=== PATIENT | male | born 1965 | race Two or more races ===

== ENCOUNTER 2018-11-19 09:30 | Emergency (ER) | payer OTHER ==
[2018-11-19 10:26] LABS: ADD MAN DIFF? NO
[2018-11-19 10:27] LABS: BASOPHILS % 0.9 % (0.0-2.0); EOSINOPHILS # 0.1 10^3/ul (0.0-0.5); EOSINOPHILS % 1.7 % (0.0-7.0); HEMATOCRIT 43.1 % (42.0-52.0); HEMOGLOBIN 15.2 g/dl (14.0-18.0); LYMPHOCYTES # 1.3 10^3/ul (0.8-2.9); LYMPHOCYTES % 36.4 % (15.0-51.0); MEAN CORPUSCULAR HEMOGLOBIN 33.6 pg (29.0-33.0); MEAN CORPUSCULAR HGB CONC 35.3 g/dl (32.0-37.0); MEAN CORPUSCULAR VOLUME 95.4 fl (82.0-101.0); MEAN PLATELET VOLUME 9.6 fl (7.4-10.4); MONOCYTE # 0.5 10^3/ul (0.3-0.9); MONOCYTES % 13.1 % (0.0-11.0); NEUTROPHIL # 1.6 10^3/ul (1.6-7.5); NEUTROPHILS % 47.9 % (39.0-77.0); PLATELET COUNT 156 10^3/UL (140-415); RED BLOOD COUNT 4.52 10^6/ul (4.70-6.10); RED CELL DISTRIBUTION WIDTH 13.2 % (11.5-14.5)
[2018-11-19 10:27] LABS: WHITE BLOOD COUNT 3.4 10^3/ul (4.8-10.8)
[2018-11-19 10:45] LABS: ALANINE AMINOTRANSFERASE 96 IU/L (13-69); ALBUMIN 4.3 g/dl (3.3-4.9); ALBUMIN/GLOBULIN RATIO 1.07; ALKALINE PHOSPHATASE 97 IU/L (42-121); ANION GAP 10 (5-13); ASPARTATE AMINO TRANSFERASE 64 IU/L (15-46); BILIRUBIN,INDIRECT 0.9 mg/dl (0-1.1); BILIRUBIN,TOTAL 0.9 mg/dl (0.2-1.3); BLOOD UREA NITROGEN 9 mg/dl (7-20); CALCIUM 9.3 mg/dl (8.4-10.2); CARBON DIOXIDE 29 mmol/L (21-31); CHLORIDE 104 mmol/L (97-110); CREATININE 0.77 mg/dl (0.61-1.24); Estimated GFR > 60 mL/min (>60); GLUCOSE 118 mg/dl (70-220); POTASSIUM 4.2 mmol/L (3.5-5.1); SODIUM 143 mmol/L (135-144); TOTAL PROTEIN 8.3 g/dl (6.1-8.1)
[2018-11-19 10:50] LABS: INR 0.96; PROTIME 12.9 Sec (11.9-14.9)
[2018-11-19 10:51] LABS: PARTIAL THROMBOPLASTIN TIME 28.6 Sec (23.0-35.0)
== END 2018-11-19 11:45 | disposition home or self-care (01) ==
LOC: E/R 09:30
DX: K62.5 Hemorrhage of anus and rectum (principal); F17.210 Nicotine dependence, cigarettes, uncomplicated; R10.13 Epigastric pain
CPT/HCPCS: 36415; 74176; 80053; 85025; 85610; 85730; 86850; 86900; 86901; 99285-25

== ENCOUNTER 2019-06-04 09:57 | Inpatient (IN) | payer OTHER ==
[2019-06-04] MEDS: ONDANSETRON 4 MG INJ IV ×2 (10:15→12:33)
[2019-06-04 10:16] LABS: ADD MAN DIFF? NO
[2019-06-04] MEDS: HYDROmorphONE 1 MG/ML SYG IV ×2 (10:16→12:33)
[2019-06-04] MEDS: SOD CHLORIDE 0.9% 1,000 ML IV ×2 (10:17→12:32)
[2019-06-04 10:20] LABS: WHITE BLOOD COUNT 4.3 10^3/ul (4.8-10.8)
[2019-06-04 10:20] LABS: BASOPHILS % 0.5 % (0.0-2.0); EOSINOPHILS # 0.1 10^3/ul (0.0-0.5); EOSINOPHILS % 2.8 % (0.0-7.0); HEMATOCRIT 42.7 % (42.0-52.0); LYMPHOCYTES # 1.8 10^3/ul (0.8-2.9); LYMPHOCYTES % 42.1 % (15.0-51.0); MEAN CORPUSCULAR HEMOGLOBIN 33.9 pg (29.0-33.0); MEAN CORPUSCULAR HGB CONC 35.1 g/dl (32.0-37.0); MEAN CORPUSCULAR VOLUME 96.6 fl (82.0-101.0); MEAN PLATELET VOLUME 10.3 fl (7.4-10.4); MONOCYTE # 0.5 10^3/ul (0.3-0.9); MONOCYTES % 12.6 % (0.0-11.0); NEUTROPHIL # 1.8 10^3/ul (1.6-7.5); NEUTROPHILS % 41.8 % (39.0-77.0); PLATELET COUNT 139 10^3/UL (140-415); RED BLOOD COUNT 4.42 10^6/ul (4.70-6.10); RED CELL DISTRIBUTION WIDTH 13.8 % (11.5-14.5)
[2019-06-04 10:39] LABS: ALANINE AMINOTRANSFERASE 70 IU/L (13-69); ALBUMIN 4.4 g/dl (3.3-4.9); ALBUMIN/GLOBULIN RATIO 0.97; ALKALINE PHOSPHATASE 92 IU/L (42-121); AMYLASE 102 U/L (11-123); ANION GAP 10 (5-13); ASPARTATE AMINO TRANSFERASE 69 IU/L (15-46); BILIRUBIN,INDIRECT 1.6 mg/dl (0-1.1); BILIRUBIN,TOTAL 1.6 mg/dl (0.2-1.3); BLOOD UREA NITROGEN 6 mg/dl (7-20); CALCIUM 9.2 mg/dl (8.4-10.2); CARBON DIOXIDE 24 mmol/L (21-31); CHLORIDE 109 mmol/L (97-110); CREATININE 0.87 mg/dl (0.61-1.24); Estimated GFR > 60 mL/min (>60); GLUCOSE 88 mg/dl (70-220); LIPASE 140 U/L (23-300); POTASSIUM 4.1 mmol/L (3.5-5.1); SODIUM 143 mmol/L (135-144); TOTAL PROTEIN 8.9 g/dl (6.1-8.1)
[2019-06-04 10:40] LABS: INR 1.01; PARTIAL THROMBOPLASTIN TIME 24.1 Sec (23.0-35.0); PROTIME 13.4 Sec (11.9-14.9)
[2019-06-04 10:51] LABS: TROPONIN-I < 0.012 ng/ml (0.000-0.120)
[2019-06-04 12:05] LABS: ADD UMIC YES; UR ASCORBIC ACID NEGATIVE (NEGATIVE); UR BACTERIA FEW /HPF (NONE SEEN); UR BILIRUBIN (Dip) NEGATIVE (NEGATIVE); UR BLOOD (Dip) 3+ mg/dL (NEGATIVE); UR CLARITY CLEAR (CLEAR); UR COLOR YELLOW (YELLOW); UR GLUCOSE (Dip) NEGATIVE (NEGATIVE); UR KETONES (Dip) NEGATIVE (NEGATIVE); UR LEUKOCYTE ESTERASE (Dip) NEGATIVE Leu/ul (NEGATIVE); UR MUCUS FEW /HPF (NONE SEEN); UR NITRITE (Dip) NEGATIVE (NEGATIVE); UR RBC > 182 /HPF (0-5); UR SPECIFIC GRAVITY (Dip) 1.006 (1.003-1.030); UR TOTAL PROTEIN (Dip) NEGATIVE (NEGATIVE); UR UROBILINOGEN (Dip) NEGATIVE (NEGATIVE); UR WBC 12 /HPF (0-5)
[2019-06-04] MEDS ORDERED: ONDANSETRON 4 MG INJ IV ×2 (12:30→14:30)
[2019-06-04] MEDS ORDERED: ACETAMINOPHEN 325 MG TAB PO ×2 (12:30→14:30)
[2019-06-04] MEDS: KETOROLAC 30 MG INJ IV (12:33)
[2019-06-04] MEDS: TAMSULOSIN (SR) 0.4 MG CAP PO ×2 (12:34→20:54)
[2019-06-04] MEDS: CIPROFLOXACIN 400MG/D5W 200 ML IVPB (12:44)
[2019-06-04] MEDS ORDERED: NACL 0.9% 3 ML SYG IV (14:30)
[2019-06-04] MEDS: HYDROCODONE/APAP (5/325) TAB PO (15:56)
[2019-06-04] MEDS: morphine 2 MG INJ IV ×2 (19:14→23:40)
[2019-06-05 04:58] LABS: ADD MAN DIFF? NO
[2019-06-05 05:21] LABS: BASOPHILS % 0.6 % (0.0-2.0); EOSINOPHILS # 0.2 10^3/ul (0.0-0.5); HEMATOCRIT 38.7 % (42.0-52.0); HEMOGLOBIN 13.2 g/dl (14.0-18.0); LYMPHOCYTES # 1.5 10^3/ul (0.8-2.9); LYMPHOCYTES % 30.2 % (15.0-51.0); MEAN CORPUSCULAR HEMOGLOBIN 33.7 pg (29.0-33.0); MEAN CORPUSCULAR HGB CONC 34.1 g/dl (32.0-37.0); MEAN CORPUSCULAR VOLUME 98.7 fl (82.0-101.0); MEAN PLATELET VOLUME 10.8 fl (7.4-10.4); MONOCYTE # 0.7 10^3/ul (0.3-0.9); MONOCYTES % 12.8 % (0.0-11.0); NEUTROPHIL # 2.7 10^3/ul (1.6-7.5); PLATELET COUNT 112 10^3/UL (140-415); RED BLOOD COUNT 3.92 10^6/ul (4.70-6.10); RED CELL DISTRIBUTION WIDTH 13.9 % (11.5-14.5)
[2019-06-05 05:21] LABS: WHITE BLOOD COUNT 5.1 10^3/ul (4.8-10.8)
[2019-06-05 05:32] LABS: ALANINE AMINOTRANSFERASE 53 IU/L (13-69); ALBUMIN 3.1 g/dl (3.3-4.9); ALBUMIN/GLOBULIN RATIO 0.88; ALKALINE PHOSPHATASE 75 IU/L (42-121); ANION GAP 4 (5-13); ASPARTATE AMINO TRANSFERASE 43 IU/L (15-46); BILIRUBIN,INDIRECT 1.3 mg/dl (0-1.1); BILIRUBIN,TOTAL 1.3 mg/dl (0.2-1.3); BLOOD UREA NITROGEN 9 mg/dl (7-20); CALCIUM 8.4 mg/dl (8.4-10.2); CARBON DIOXIDE 27 mmol/L (21-31); CHLORIDE 108 mmol/L (97-110); CREATININE 0.74 mg/dl (0.61-1.24); Estimated GFR > 60 mL/min (>60); GLUCOSE 86 mg/dl (70-220); MAGNESIUM 1.9 mg/dl (1.7-2.5); POTASSIUM 3.6 mmol/L (3.5-5.1); SODIUM 139 mmol/L (135-144); TOTAL PROTEIN 6.6 g/dl (6.1-8.1)
[2019-06-05] MEDS: morphine 2 MG INJ IV ×2 (06:08→15:07)
[2019-06-05 07:09] LABS: HEMOGLOBIN A1C 4.8 % (0-5.9)
[2019-06-05] MEDS: CIPROFLOXACIN 500 MG TAB PO (11:02)
[2019-06-05] MEDS: POLYETHYLENE GLYCOL 17 GM PACKET PO (18:50)
[2019-06-05] MEDS: TAMSULOSIN (SR) 0.4 MG CAP PO (22:24)
[2019-06-06] MEDS: HYDROCODONE/APAP (5/325) TAB PO (08:03)
[2019-06-06] MEDS: CIPROFLOXACIN 500 MG TAB PO (08:03)
[2019-06-06] MEDS: morphine 2 MG INJ IV (08:07)
[2019-06-06] MEDS: DOCUSATE SODIUM 100 MG CAP PO ×2 (11:43→20:32)
[2019-06-06] MEDS: POLYETHYLENE GLYCOL 17 GM PACKET PO (11:43)
[2019-06-06] MEDS: SENNA TAB PO ×2 (17:34→20:32)
[2019-06-06] MEDS: TAMSULOSIN (SR) 0.4 MG CAP PO (20:32)
[2019-06-07] MEDS: DEXTROSE 5%-0.45% NACL 1,000 ML IV ×3 (02:07→21:32)
[2019-06-07] MEDS: SENNA TAB PO ×2 (09:00→21:29)
[2019-06-07] MEDS: DOCUSATE SODIUM 100 MG CAP PO ×2 (09:00→21:30)
[2019-06-07] MEDS: CIPROFLOXACIN 500 MG TAB PO (09:00)
[2019-06-07] MEDS ORDERED: SEVOFLURANE 15 MIN (18:10)
[2019-06-07] MEDS ORDERED: LIDOCAINE 2% (SDV) 5 ML INJ (18:11)
[2019-06-07] MEDS ORDERED: PROPOFOL 20 ML (18:11)
[2019-06-07] MEDS: IOHEXOL 300MG/ML 30 ML BTL (18:34)
[2019-06-07] MEDS ORDERED: CEFAZOLIN 1 GM INJ (18:40)
[2019-06-07] MEDS ORDERED: ATROPINE 1 MG/10 ML SYRINGE (18:46)
[2019-06-07] MEDS ORDERED: HYDROmorphONE 1 MG/5 ML IV SYRINGE IV ×3 (19:18→19:30)
[2019-06-07] MEDS: HYDROmorphONE 1 MG/5 ML IV SYRINGE IV (19:25)
[2019-06-07] MEDS ORDERED: EPHEDrine 25 MG/5 ML SYG IV (19:30)
[2019-06-07] MEDS ORDERED: FENTAnyl 50 MCG/ML VIAL IV ×3 (19:30)
[2019-06-07] MEDS ORDERED: MIDAZOLAM 1 MG/ML 2 ML INJ IV (19:30)
[2019-06-07] MEDS ORDERED: DIPHENHYDRAMINE 50 MG INJ IV (19:30)
[2019-06-07] MEDS ORDERED: hydrALAzine 20 MG INJ IV (19:30)
[2019-06-07] MEDS ORDERED: ONDANSETRON 4 MG INJ IV (19:30)
[2019-06-07] MEDS ORDERED: METOCLOPRAMIDE 10 MG INJ IV (19:30)
[2019-06-07] MEDS ORDERED: MEPERIDINE 25 MG INJ IV (19:30)
[2019-06-07] MEDS ORDERED: LABETALOL HCL 20MG INJ IV (19:30)
[2019-06-07] MEDS: TAMSULOSIN (SR) 0.4 MG CAP PO (21:29)
[2019-06-08] MEDS: DEXTROSE 5%-0.45% NACL 1,000 ML IV (07:10)
[2019-06-08] MEDS: SENNA TAB PO (08:06)
[2019-06-08] MEDS: CIPROFLOXACIN 500 MG TAB PO (08:06)
[2019-06-08] MEDS: DOCUSATE SODIUM 100 MG CAP PO (08:06)
[2019-06-08] MEDS: HYDROCODONE/APAP (5/325) TAB PO ×2 (08:07→14:09)
[2019-06-08 12:30] LABS: ADD MAN DIFF? NO
[2019-06-08 12:34] LABS: WHITE BLOOD COUNT 5.7 10^3/ul (4.8-10.8)
[2019-06-08 12:34] LABS: BASOPHILS % 0.5 % (0.0-2.0); EOSINOPHILS # 0.1 10^3/ul (0.0-0.5); EOSINOPHILS % 2.4 % (0.0-7.0); HEMATOCRIT 43.9 % (42.0-52.0); HEMOGLOBIN 15.1 g/dl (14.0-18.0); LYMPHOCYTES # 1.7 10^3/ul (0.8-2.9); LYMPHOCYTES % 30.1 % (15.0-51.0); MEAN CORPUSCULAR HEMOGLOBIN 33.3 pg (29.0-33.0); MEAN CORPUSCULAR HGB CONC 34.4 g/dl (32.0-37.0); MEAN CORPUSCULAR VOLUME 96.9 fl (82.0-101.0); MEAN PLATELET VOLUME 10.7 fl (7.4-10.4); MONOCYTE # 0.7 10^3/ul (0.3-0.9); MONOCYTES % 12.4 % (0.0-11.0); NEUTROPHIL # 3.1 10^3/ul (1.6-7.5); NEUTROPHILS % 54.4 % (39.0-77.0); POSITIVE DIFF @See below; RED BLOOD COUNT 4.53 10^6/ul (4.70-6.10); RED CELL DISTRIBUTION WIDTH 13.9 % (11.5-14.5)
[2019-06-08 12:35] LABS: PLATELET COUNT 139 10^3/UL (140-415)
== END 2019-06-08 16:50 | disposition home or self-care (01) | DRG 661 ==
LOC: E/R 09:57 → MS1 12:22
PROC: 0T778DZ Dilation of Left Ureter with Intraluminal Device, Via Natural or Artificial Opening Endoscopic (ICD-10-PCS; principal; 2019-06-07 18:05)
DX: N20.1 Calculus of ureter (principal); Z72.0 Tobacco use; Z72.89 Other problems related to lifestyle; F17.210 Nicotine dependence, cigarettes, uncomplicated
CPT/HCPCS: 36415; 71045; 74018; 74176; 74420; 80053; 81001; 82150; 83036; 83690; 83735; 84100; 84484; 85025; 85610; 85730; 87086; 93005; 96361; 96374; 96375; 99285-25

== ENCOUNTER 2019-07-16 13:16 | Emergency (ER) | payer OTHER ==
[2019-07-16] MEDS: HYDROmorphONE 1 MG/ML SYG IV ×2 (13:44→16:15)
[2019-07-16] MEDS: SOD CHLORIDE 0.9% 1,000 ML IV (13:44)
[2019-07-16] MEDS: ONDANSETRON 4 MG INJ IV (13:44)
[2019-07-16 13:46] LABS: ADD MAN DIFF? NO
[2019-07-16 13:49] LABS: WHITE BLOOD COUNT 4.2 10^3/ul (4.8-10.8)
[2019-07-16 13:49] LABS: BASOPHILS % 0.5 % (0.0-2.0); EOSINOPHILS # 0.1 10^3/ul (0.0-0.5); EOSINOPHILS % 2.9 % (0.0-7.0); HEMATOCRIT 38.4 % (42.0-52.0); HEMOGLOBIN 12.9 g/dl (14.0-18.0); LYMPHOCYTES # 1.6 10^3/ul (0.8-2.9); LYMPHOCYTES % 39.5 % (15.0-51.0); MEAN CORPUSCULAR HEMOGLOBIN 32.7 pg (29.0-33.0); MEAN CORPUSCULAR HGB CONC 33.6 g/dl (32.0-37.0); MEAN CORPUSCULAR VOLUME 97.2 fl (82.0-101.0); MEAN PLATELET VOLUME 10.1 fl (7.4-10.4); MONOCYTE # 0.3 10^3/ul (0.3-0.9); NEUTROPHILS % 48.9 % (39.0-77.0); PLATELET COUNT 157 10^3/UL (140-415); RED BLOOD COUNT 3.95 10^6/ul (4.70-6.10); RED CELL DISTRIBUTION WIDTH 13.4 % (11.5-14.5)
[2019-07-16 14:04] LABS: ADD UMIC YES; UR ASCORBIC ACID NEGATIVE (NEGATIVE); UR BILIRUBIN (Dip) NEGATIVE (NEGATIVE); UR BLOOD (Dip) 3+ mg/dL (NEGATIVE); UR CLARITY CLOUDY (CLEAR); UR COLOR AMBER (YELLOW); UR GLUCOSE (Dip) 1+ mg/dL (NEGATIVE); UR KETONES (Dip) TRACE mg/dL (NEGATIVE); UR LEUKOCYTE ESTERASE (Dip) NEGATIVE Leu/ul (NEGATIVE); UR MUCUS MODERATE /HPF (NONE SEEN); UR NITRITE (Dip) NEGATIVE (NEGATIVE); UR RBC > 182 /HPF (0-5); UR SPECIFIC GRAVITY (Dip) 1.023 (1.003-1.030); UR TOTAL PROTEIN (Dip) 3+ mg/dl (NEGATIVE); UR UROBILINOGEN (Dip) NEGATIVE (NEGATIVE); UR WBC 96 /HPF (0-5)
[2019-07-16 14:12] LABS: ALANINE AMINOTRANSFERASE 34 IU/L (13-69); ALBUMIN 3.8 g/dl (3.3-4.9); ALBUMIN/GLOBULIN RATIO 0.92; ALKALINE PHOSPHATASE 82 IU/L (42-121); ANION GAP 8 (5-13); ASPARTATE AMINO TRANSFERASE 40 IU/L (15-46); BILIRUBIN,INDIRECT 0.9 mg/dl (0-1.1); BILIRUBIN,TOTAL 0.9 mg/dl (0.2-1.3); BLOOD UREA NITROGEN 9 mg/dl (7-20); CALCIUM 9.1 mg/dl (8.4-10.2); CARBON DIOXIDE 25 mmol/L (21-31); CHLORIDE 110 mmol/L (97-110); CREATININE 0.88 mg/dl (0.61-1.24); Estimated GFR > 60 mL/min (>60); GLUCOSE 122 mg/dl (70-220); LIPASE 158 U/L (23-300); POTASSIUM 3.8 mmol/L (3.5-5.1); SODIUM 143 mmol/L (135-144); TOTAL PROTEIN 7.9 g/dl (6.1-8.1)
[2019-07-16] MEDS: CEFTRIAXONE 1 GM/50 ML (PMX) 50 ML IVPB (14:34)
[2019-07-16] MEDS: KETOROLAC 15 MG INJ IV (17:46)
== END 2019-07-16 19:25 | disposition left against medical advice (07) ==
LOC: E/R 13:16
DX: N20.1 Calculus of ureter (principal); F17.210 Nicotine dependence, cigarettes, uncomplicated
CPT/HCPCS: 36415; 74176; 80053; 81001; 83690; 85025; 87086; 96374; 96375; 96376; 99285-25